=== PATIENT | female | born 1960 | race Caucasian/White ===

== ENCOUNTER 2018-10-16 12:51 | Emergency (ER) | payer BC ==
[2018-10-16 13:22] VITALS: RESP 18
[2018-10-16] MEDS ORDERED: SODIUM CHLORIDE 0.9% 1,000 ML IV STA (14:38)
[2018-10-16] MEDS ORDERED: ONDANSETRON 4 MG/2 ML VIAL IVP STA (14:38)
[2018-10-16] MEDS ORDERED: MORPHINE SULFATE 4 MG/ML SYRINGE IVP STA (14:44)
[2018-10-16] MEDS ORDERED: VENLAFAXINE HCL 75 MG TAB PO STA (14:44)
[2018-10-16] MEDS ORDERED: diphenhydrAMINE 50 MG/ML 1 ML VIAL IVP STA (14:54)
[2018-10-16] MEDS ORDERED: methylPREDNISolone SOD SUCCI 125 MG/2 ML VIAL IV STA (14:54)
[2018-10-16] MEDS ORDERED: FAMOTIDINE 20 MG/2 ML VIAL IV STA (14:54)
--- NOTE | 2018-10-16 14:55 | ED ---
Abdominal Pain HPI - General Chief Complaint: Abdominal Pain Stated Complaint: Vomiting Time Seen by Provider: 10/16/18 14:12 Source: patient Mode of arrival: ambulatory Limitations: no limitations - History of Present Illness Initial Comments: 58yo female with PMH of chronic IBS, depression, anxiety disorder, previous cholecystectomy and appendectomy presenting for chief complaints of "im out of my effexor and i think its causing my pain". Patient states that she ran out of her Effexor about 2-3 days ago, she states that she has had runny stools and an episode of emesis. She denies uncontrolled emesis or hematemesis. Patient states she has diffuse abdominal tenderness is unable to localize, she states is mostly cramping of the lower abdomen. Patient denies any melena or hematochezia. Patient denies any recent travel or ingestion of food concerning for possible infectious diarrhea. Pt denies fever, chills, chest pain, dyspnea, dyspnea on exertion, back pain. Patient continues to state that she feels that without her Effexor it has increased her anxiety and causing IBS. No sick contact in household. Pt states she is attempting to establish primary care with Dr. Reilly however she is a new patient since recently moving from [place] and cant get an appointment for 6 months. Upon arrival pt appears well , no signs of distress. - Related Data Home Medications Medication Instructions Recorded Confirmed Gabapentin [Neurontin] 300 mg PO TID 10/16/18 10/16/18 Hyoscyamine Sulfate [Levbid] 0.375 mg PO BID 10/16/18 10/16/18 Meloxicam [Mobic] 15 mg PO DAILY 10/16/18 10/16/18 Pantoprazole Sodium [Protonix] 40 mg PO BID 10/16/18 10/16/18 QUEtiapine [SEROquel] 100 mg PO HS 10/16/18 10/16/18 Venlafaxine HCl [Effexor XR] 225 mg PO DAILY 10/16/18 10/16/18 Previous Rx's Medication Instructions Recorded Venlafaxine HCl [Effexor] 75 mg PO TID 21 Days #63 tab 10/16/18 Allergies Allergy/AdvReac Type Severity Reaction Status Date / Time cephalexin [From Keflex] Allergy Anaphylaxis Verified 10/16/18 14:48 Iodinated Contrast- Oral and Allergy Unknown Verified 10/16/18 14:48 IV Dye Penicillins Allergy Anaphylaxis Verified 10/16/18 14:48 Sulfa (Sulfonamide Allergy Unknown Verified 10/16/18 14:48 Antibiotics) Review of Systems ROS Statement: Those systems with pertinent positive or pertinent negative responses have been documented in the HPI. ROS Other: All systems not noted in ROS Statement are negative. Past Medical History Past Medical History: No Reported History History of Any Multi-Drug Resistant Organisms: None Reported Past Surgical History: Appendectomy, Back Surgery, Section, Cholecystectomy, Orthopedic Surgery, Tonsillectomy Additional Past Surgical History / Comment(s): cervical fusion, colonoscopy Past Psychological History: Anxiety, Depression Smoking Status: Current every day smoker Past Alcohol Use History: None Reported Past Drug Use History: None Reported General Exam - General Exam Comments Initial Comments: General: The patient is awake and alert, in no distress, and does not appear acutely ill. Eye: Pupils are equal, round and reactive to light, extra-ocular movements are intact. No nystagmus. There is normal conjunctiva bilaterally. No signs of icterus. Ears, nose, mouth and throat: There are moist mucous membranes and no oral lesions. Neck: The neck is supple, there is no tenderness or JVD. Cardiovascular: There is a regular rate and rhythm. No murmur, rub or gallop is appreciated. Respiratory: Lungs are clear to auscultation, respirations are non-labored, breath sounds are equal. No wheezes, stridor, rales, or rhonchi. Gastrointestinal: No noted diaphoresis, jaundice, pallor, protecting postures or squirming. Symmetrical pigmentation of abdomen without signs of inflammation. Striae noted Umbilicus mildline, inverted without swelling. No dilated veins. Abdomen contour obese, no noted abdominal distention. No visible masses. No peristalsis , aortic pulsations, or ventral hernia. Bowel sounds audible in all 4 quadrants , unremarkable. Mild diffuse tenderness to very deep palpation of the lower abdomen. Liver edge, not palpable. Spleen edge, right and left kidney not palpable. Superior bladder margin non-tender. Special Testing: Negative [place], Rovsing, McBurney, Ian, cutaneous hyperesthesia. Negative Heel Jar test. No CVA tenderness. Digital rectal exam deferred. Negative lamb turners or cullens sign Musculoskeletal: Normal ROM, no tenderness. Strength 5/5. Sensation intact. Pulses equal bilaterally 2+. Neurological: A&O x 3. CN II-XII intact, There are no obvious motor or sensory deficits. Coordination appears grossly intact. Speech is normal. Skin: Skin is warm and dry and no rashes or lesions are noted. Psychiatric: Cooperative, appropriate mood & affect, normal judgment. Limitations: no limitations Course Vital Signs 10/16/18 10/16/18 10/16/18 13:18 16:00 18:20 Temperature 98.3 F 98.7 F Pulse Rate 75 72 85 Respiratory 18 18 18 Rate Blood Pressure 171/86 154/77 157/85 O2 Sat by Pulse 97 98 95 Oximetry Medical Decision Making - Medical Decision Making 58-year-old female presenting today for chief complaint of diffuse abdominal pain, an episode of vomiting and diarrhea. Patient had no episodes of vomiting in the ER nor diarrhea. Abdominal exam benign, very mild tenderness to very deep palpation. No rigidity or guarding. His normal. CT negative, recommend patient was to correlate for possible small bowel enteritis which appears consistent with patient symptoms. Pt was given one dose of 75mg effexor (her previous dosing that she takes TID) and states it helped tremendously. She states she feels so much better and cant believe that her family didnt believe that the effexor was causing her bowel symptoms. At this time given acceptable laboratory findings, benign abdominal exam, (-) CT for acute intraabdominal process that patient is stable for discharge with prescription for effexor until patient can find a new primary care provider. I did recommend being seen at the [facility] for f/u while awaiting establishing care with new primary care provider. Pt is agreeable with this plan and discharge. Pt discharged appearing well. Improvement of BP. Case was discussed with attending provider Dr. Sorensen prior to patient's discharge who agrees with impression and plan - Lab Data Result diagrams: 10/16/18 15:16 10/16/18 15:16 Lab Results 10/16/18 10/16/18 10/16/18 Range/Units 15:16 15:16 15:16 WBC 11.1 H (3.8-10.6) k/uL RBC 4.54 (3.80-5.40) m/uL Hgb 14.6 (11.4-16.0) gm/dL Hct 42.3 (34.0-46.0) % MCV 93.2 (80.0-100.0) fL MCH 32.2 (25.0-35.0) pg MCHC 34.5 (31.0-37.0) g/dL RDW 13.9 (11.5-15.5) % Plt Count 306 (150-450) k/uL Neutrophils % 76 % Lymphocytes % 18 % Monocytes % 4 % Eosinophils % 0 % Basophils % 0 % Neutrophils # 8.5 H (1.3-7.7) k/uL Lymphocytes # 2.0 (1.0-4.8) k/uL Monocytes # 0.5 (0-1.0) k/uL Eosinophils # 0.0 (0-0.7) k/uL Basophils # 0.0 (0-0.2) k/uL PT (9.0-12.0) sec INR (<1.2) APTT (22.0-30.0) sec Sodium 142 (137-145) mmol/L Potassium 3.7 (3.5-5.1) mmol/L Chloride 106 (98-107) mmol/L Carbon Dioxide 25 (22-30) mmol/L Anion Gap 11 mmol/L BUN 13 (7-17) mg/dL Creatinine 0.49 L (0.52-1.04) mg/dL Est GFR (CKD-EPI)AfAm >90 (>60 ml/min/1.73 sqM) Est GFR (CKD-EPI)NonAf >90 (>60 ml/min/1.73 sqM) Glucose 118 H (74-99) mg/dL Plasma Lactic Acid Mario (0.7-2.0) mmol/L Calcium 10.0 (8.4-10.2) mg/dL Total Bilirubin 0.9 (0.2-1.3) mg/dL AST 19 (14-36) U/L ALT 35 (9-52) U/L Alkaline Phosphatase 94 (38-126) U/L Troponin I (0.000-0.034) ng/mL Total Protein 7.4 (6.3-8.2) g/dL Albumin 4.6 (3.5-5.0) g/dL Amylase 51 (30-110) U/L Lipase 71 (23-300) U/L Urine Color Yellow Urine Appearance Clear (Clear) Urine pH 5.5 (5.0-8.0) Ur Specific [place] 1.021 (1.001-1.035) Urine Protein Trace H (Negative) Urine Glucose (UA) Negative (Negative) Urine Ketones Negative (Negative) Urine Blood Moderate H (Negative) Urine Nitrite Negative (Negative) Urine Bilirubin Negative (Negative) Urine Urobilinogen <2.0 (<2.0) mg/dL Ur Leukocyte Esterase Trace H (Negative) Urine RBC 15 H (0-5) /hpf Urine WBC 3 (0-5) /hpf Ur Squamous Epith Cells 2 (0-4) /hpf Urine Mucus Moderate H (None) /hpf 10/16/18 10/16/18 10/16/18 Range/Units 15:16 15:16 15:16 WBC (3.8-10.6) k/uL RBC (3.80-5.40) m/uL Hgb (11.4-16.0) gm/dL Hct (34.0-46.0) % MCV (80.0-100.0) fL MCH (25.0-35.0) pg MCHC (31.0-37.0) g/dL RDW (11.5-15.5) % Plt Count (150-450) k/uL Neutrophils % % Lymphocytes % % Monocytes % % Eosinophils % % Basophils % % Neutrophils # (1.3-7.7) k/uL Lymphocytes # (1.0-4.8) k/uL Monocytes # (0-1.0) k/uL Eosinophils # (0-0.7) k/uL Basophils # (0-0.2) k/uL PT 10.7 (9.0-12.0) sec INR 1.0 (<1.2) APTT 25.1 (22.0-30.0) sec Sodium (137-145) mmol/L Potassium (3.5-5.1) mmol/L Chloride (98-107) mmol/L Carbon Dioxide (22-30) mmol/L Anion Gap mmol/L BUN (7-17) mg/dL Creatinine (0.52-1.04) mg/dL Est GFR (CKD-EPI)AfAm (>60 ml/min/1.73 sqM) Est GFR (CKD-EPI)NonAf (>60 ml/min/1.73 sqM) Glucose (74-99) mg/dL Plasma Lactic Acid Mario 1.4 (0.7-2.0) mmol/L Calcium (8.4-10.2) mg/dL Total Bilirubin (0.2-1.3) mg/dL AST (14-36) U/L ALT (9-52) U/L Alkaline Phosphatase (38-126) U/L Troponin I <0.012 (0.000-0.034) ng/mL Total Protein (6.3-8.2) g/dL Albumin (3.5-5.0) g/dL Amylase (30-110) U/L Lipase (23-300) U/L Urine Color Urine Appearance (Clear) Urine pH (5.0-8.0) Ur Specific [place] (1.001-1.035) Urine Protein (Negative) Urine Glucose (UA) (Negative) Urine Ketones (Negative) Urine Blood (Negative) Urine Nitrite (Negative) Urine Bilirubin (Negative) Urine Urobilinogen (<2.0) mg/dL Ur Leukocyte Esterase (Negative) Urine RBC (0-5) /hpf Urine WBC (0-5) /hpf Ur Squamous Epith Cells (0-4) /hpf Urine Mucus (None) /hpf Disposition Clinical Impression: Acute diarrhea, Acute vomiting, Medication refill Disposition: HOME SELF-CARE Condition: Good Instructions (If sedation given, give patient instructions): Gastroenteritis ( ED), Acute Nausea and Vomiting (ED), Abdominal Pain (ED) Additional Instructions: Please use medication as discussed. Please follow-up with family doctor in the next 2 days.. Please return to emergency room if the symptoms increase or worsen or for any other concerns. Prescriptions: Venlafaxine HCl [Effexor] 75 mg PO TID 21 Days #63 tab Is patient prescribed a controlled substance at d/c from ED?: No Referrals: None,Stated [Primary Care Provider] - 1-2 days [facility] [NON-STAFF] - 1-2 days Adriana Vann MD [STAFF PHYSICIAN] - 1-2 days Fabio Back MD [STAFF PHYSICIAN] - 1-2 days Time of Disposition: 18:12
[2018-10-16 15:36] LABS: Basophils % (A) 0 %; Eosinophils % (A) 0 %; HCT 42.3 % (34.0-46.0); HGB 14.6 gm/dL (11.4-16.0); Lymphocytes % (A) 18 %; MCH 32.2 pg (25.0-35.0); MCHC 34.5 g/dL (31.0-37.0); MCV 93.2 fL (80.0-100.0); Mean Platelet Volume 6.4; Monocytes # (A) 0.5 k/uL (0-1.0); Monocytes % (A) 4 %; Neutrophils # (A) 8.5 k/uL (1.3-7.7); Neutrophils % (A) 76 %; Platelet Count 306 k/uL (150-450); RBC 4.54 m/uL (3.80-5.40); RDW 13.9 % (11.5-15.5); WBC 11.1 k/uL (3.8-10.6)
[2018-10-16 15:44] LABS: Prothrombin Time 10.7 sec (9.0-12.0)
[2018-10-16 15:45] LABS: Partial Thromboplastin Time 25.1 sec (22.0-30.0)
[2018-10-16 15:46] LABS: Appearance,Urine Clear (Clear); Bilirubin,Urine Negative (Negative); Blood,Urine Moderate (Negative); Color,Urine Yellow; Glucose,Urine (UA) Negative (Negative); Ketones,Urine Negative (Negative); Leukocyte Esterase,Urine Trace (Negative); Mucus,Urine Moderate /hpf; Nitrite,Urine Negative (Negative); PH, Urine 5.5 (5.0-8.0); Protein,Urine Trace (Negative); RBC,Urine 15 /hpf (0-5); Specific Gravity,Urine 1.021 (1.001-1.035); Squamous Epithelial Cell,Urine 2 /hpf (0-4); Urobilinogen,Urine <2.0 mg/dL (<2.0); WBC,Urine 3 /hpf (0-5)
[2018-10-16 15:50] LABS: ALT 35 U/L (9-52); AST 19 U/L (14-36); Albumin 4.6 g/dL (3.5-5.0); Alkaline Phosphatase 94 U/L (38-126); Amylase 51 U/L (30-110); Anion Gap 11 mmol/L; Blood Urea Nitrogen 13 mg/dL (7-17); Carbon Dioxide 25 mmol/L (22-30); Chloride 106 mmol/L (98-107); Glucose 118 mg/dL (74-99); Lipase 71 U/L (23-300); Potassium 3.7 mmol/L (3.5-5.1); Sodium 142 mmol/L (137-145); Total Bilirubin 0.9 mg/dL (0.2-1.3); Total Protein 7.4 g/dL (6.3-8.2)
--- NOTE | 2018-10-16 16:05 | XR ---
EXAMINATION TYPE: XR chest 2V DATE OF EXAM: 10/16/2018 COMPARISON: NONE HISTORY: Shortness of breath TECHNIQUE: Frontal and lateral views of the chest are obtained. FINDINGS: Scattered senescent parenchymal changes noted. Hyperinflation compatible with COPD. No evidence for infiltrate. No evidence for atelectasis. Heart size is stable. Mediastinal structures are stable and grossly unremarkable. No evidence for hilar prominence. Degenerative changes dorsal spine. IMPRESSION: 1. No evidence for acute pulmonary disease.
--- NOTE | 2018-10-16 16:31 | CT ---
EXAMINATION TYPE: CT abdomen pelvis w con DATE OF EXAM: 10/16/2018 COMPARISON: None HISTORY: Generalized abdominal pain with nausea, vomiting and diarrhea. CT DLP: 794.8 mGycm CONTRAST: CT scan of the abdomen and pelvis is performed without Oral Contrast and with IV Contrast, patient in jected with 100 mL of Isovue 300. FINDINGS: LUNG BASES-: No visible nodule. No infiltrate. LIVER/GB: Cholecystectomy changes noted. No space occupying hepatic lesion. Biliary tree is of nor mal caliber. PANCREAS: No inflammation. No distinct mass. SPLEEN: No splenic enlargement. No lesion seen. ADRENALS: No nodule. No thickening. KIDNEYS/BLADDER: No hydronephrosis. No nephrolithiasis. No distinct renal mass. Urinary bladder g rossly unremarkable. BOWEL: Normal appendix. Normal bowel caliber. Small bowel wall thickening with scattered air-fluid l evels suspicious for enteritis. No obstructive change. No free air or abscess. GENITAL ORGANS: No gross abnormality. LYMPH NODES: No greater than 1cm abdominal or pelvic lymph nodes are appreciated. AORTA: No significant abnormality. OSSEOUS STRUCTURES: Degenerative changes lumbar spine. OTHER: No significant additional abnormality is seen. IMPRESSION: 1. Correlate for small bowel enteritis.
[2018-10-16 18:21] VITALS: BP 157/85; PULSE 85; TEMP 98.7
== END 2018-10-16 18:26 | disposition home or self-care (01) ==
LOC: EC 12:51
DX: R19.7 Diarrhea, unspecified (principal); R11.10 Vomiting, unspecified; Z76.0 Encounter for issue of repeat prescription; R10.30 Lower abdominal pain, unspecified; F41.9 Anxiety disorder, unspecified; F32.9 Major depressive disorder, single episode, unspecified; F17.200 Nicotine dependence, unspecified, uncomplicated; Z87.19 Personal history of other diseases of the digestive system; Z90.49 Acquired absence of other specified parts of digestive tract; Z79.1 Long term (current) use of non-steroidal anti-inflammatories (NSAID); Z79.899 Other long term (current) drug therapy; Z88.1 Allergy status to other antibiotic agents; Z91.041 Radiographic dye allergy status; Z88.0 Allergy status to penicillin; Z88.2 Allergy status to sulfonamides
CPT/HCPCS: 36415; 80053; 82150; 83605; 83690; 84484; 85025; 85610; 85730; 81001; 87040; 71046; 74177; 99284; 96374; 96375 ×4; 96361; J2270; J1200; J2930; J2405; Q9967

== ENCOUNTER 2019-04-06 14:13 | Emergency (ER) | payer BC ==
[2019-04-06] MEDS ORDERED: HYDROcodone/APAP 5-325MG 1 EACH TAB PO STA (14:47)
[2019-04-06] MEDS ORDERED: KETOROLAC 30 MG/ML 1 ML VIAL IVP STA (14:48)
[2019-04-06] MEDS ORDERED: CLINDAMYCIN 600 MG in DEXTROSE 5% IN WATER 50 ML IVPB STA ×2 (14:49)
--- NOTE | 2019-04-06 14:51 | ED ---
Skin/Abscess/FB HPI - General Chief complaint: Skin/Abscess/Foreign Body Stated complaint: Left breast abscess Time Seen by Provider: 04/06/19 14:24 Source: patient, RN notes reviewed, old records reviewed Mode of arrival: ambulatory Limitations: no limitations - History of Present Illness Initial comments: Patient's a 58-year-old female presents emergency department today for evaluation for an abscess underneath her left breast. Patient reports that she had 2 small areas of swelling, which started to drain on Tuesday of this past week. Patient states that this a creamy purpleish bloody substance that was removed. Patient states that over the past 24-48 hours she's had increased redness and swelling extending over the entire left breast. She complains of some pain in the axilla. Patient states that she's had no chest pain, shortness of breath. She reports that she's had history of infections such as this before presently 20 years ago. at that Time she had received IV antibiotics and a PICC line. Patient states that she has had some chills denies fever at this time. - Related Data Home Medications Medication Instructions Recorded Confirmed Gabapentin [Neurontin] 300 mg PO TID 10/16/18 10/16/18 Hyoscyamine Sulfate [Levbid] 0.375 mg PO BID 10/16/18 10/16/18 Meloxicam [Mobic] 15 mg PO DAILY 10/16/18 10/16/18 Pantoprazole Sodium [Protonix] 40 mg PO BID 10/16/18 10/16/18 QUEtiapine [SEROquel] 100 mg PO HS 10/16/18 10/16/18 Venlafaxine HCl [Effexor XR] 225 mg PO DAILY 10/16/18 10/16/18 Previous Rx's Medication Instructions Recorded Venlafaxine HCl [Effexor] 75 mg PO TID 21 Days #63 tab 10/16/18 Clindamycin [Cleocin] 450 mg PO Q6H 10 Days 04/06/19 HYDROcodone/APAP 5-325MG [[place] 1 tab PO Q6HR PRN 3 Days #12 tab 04/06/19 5-325] Allergies Allergy/AdvReac Type Severity Reaction Status Date / Time cephalexin [From Keflex] Allergy Anaphylaxis Verified 10/16/18 14:48 Iodinated Contrast- Oral and Allergy Unknown Verified 10/16/18 14:48 IV Dye Penicillins Allergy Anaphylaxis Verified 10/16/18 14:48 Sulfa (Sulfonamide Allergy Unknown Verified 10/16/18 14:48 Antibiotics) Review of Systems ROS Statement: Those systems with pertinent positive or pertinent negative responses have been documented in the HPI. ROS Other: All systems not noted in ROS Statement are negative. Past Medical History Past Medical History: No Reported History History of Any Multi-Drug Resistant Organisms: None Reported Past Surgical History: Appendectomy, Section, Cholecystectomy, Hysterectomy, Orthopedic Surgery, Tonsillectomy Additional Past Surgical History / Comment(s): cervical fusion, colonoscopy Past Psychological History: Anxiety, Depression Smoking Status: Current every day smoker Past Alcohol Use History: None Reported Past Drug Use History: None Reported General Exam - General Exam Comments Initial Comments: Patient is a 58-year-old female. Alert and oriented 3. No significant distress. Limitations: no limitations General appearance: alert, in no apparent distress Eye exam: Present: normal appearance, PERRL, EOMI. Absent: scleral icterus, conjunctival injection, periorbital swelling ENT exam: Present: normal exam, mucous membranes moist Neck exam: Present: normal inspection. Absent: tenderness, meningismus, lymphadenopathy Respiratory exam: Present: normal lung sounds bilaterally. Absent: respiratory distress, wheezes, rales, rhonchi, stridor Cardiovascular Exam: Present: regular rate, normal rhythm, normal heart sounds. Absent: systolic murmur, diastolic murmur, rubs, gallop, clicks GI/Abdominal exam: Present: soft, normal bowel sounds, other (cellulitis surrounding left breast and small area of abscess over lower brest at 6 oclock position. ). Absent: distended, tenderness, guarding, rebound, rigid Extremities exam: Present: normal inspection, full ROM, normal capillary refill. Absent: tenderness, pedal edema, joint swelling, calf tenderness Back exam: Present: normal inspection Neurological exam: Present: alert, oriented X3, CN II-XII intact Psychiatric exam: Present: normal affect, normal mood Skin exam: Present: warm, dry, intact, normal color. Absent: rash Course Vital Signs 04/06/19 04/06/19 04/06/19 14:18 14:46 15:00 Temperature 97.9 F Pulse Rate 82 82 80 Respiratory 18 12 12 Rate Blood Pressure 128/84 147/81 147/81 O2 Sat by Pulse 98 Oximetry 04/06/19 04/06/19 04/06/19 15:07 16:00 17:08 Temperature 97.4 F L 98.0 F Pulse Rate 84 82 Respiratory 12 12 Rate Blood Pressure 145/80 126/74 O2 Sat by Pulse 98 Oximetry Medical Decision Making - Medical Decision Making This Patient is a 50-year-old female presents emergency department today for evaluation for left breast cellulitis. She's had area of abscess earlier in the week and has now spread to entire left breast. She has no fever at this time vital signs are stable. White blood cell count is normal. Patient was given a dose of clindamycin she has ALLERGIES to multiple antibiotics. Patient was advised to be discharged with oral prescription as of this time. Discussed if the area of redness and swelling worsens to return for reevaluation. This was marked with pen. Patient understands treatment plan will comply. Return parameters were discussed. - Lab Data Result diagrams: 04/06/19 15:17 04/06/19 15:17 Lab Results 04/06/19 04/06/19 Range/Units 15:17 15:17 WBC 8.9 (3.8-10.6) k/uL RBC 4.29 (3.80-5.40) m/uL Hgb 13.7 (11.4-16.0) gm/dL Hct 41.0 (34.0-46.0) % MCV 95.6 (80.0-100.0) fL MCH 31.9 (25.0-35.0) pg MCHC 33.4 (31.0-37.0) g/dL RDW 15.4 (11.5-15.5) % Plt Count 268 (150-450) k/uL Neutrophils % 72 % Lymphocytes % 22 % Monocytes % 4 % Eosinophils % 1 % Basophils % 0 % Neutrophils # 6.4 (1.3-7.7) k/uL Lymphocytes # 1.9 (1.0-4.8) k/uL Monocytes # 0.3 (0-1.0) k/uL Eosinophils # 0.1 (0-0.7) k/uL Basophils # 0.0 (0-0.2) k/uL Sodium 141 (137-145) mmol/L Potassium 3.8 (3.5-5.1) mmol/L Chloride 107 (98-107) mmol/L Carbon Dioxide 24 (22-30) mmol/L Anion Gap 10 mmol/L BUN 12 (7-17) mg/dL Creatinine 0.48 L (0.52-1.04) mg/dL Est GFR (CKD-EPI)AfAm >90 (>60 ml/min/1.73 sqM) Est GFR (CKD-EPI)NonAf >90 (>60 ml/min/1.73 sqM) Glucose 117 H (74-99) mg/dL Calcium 9.7 (8.4-10.2) mg/dL Total Bilirubin 0.5 (0.2-1.3) mg/dL AST 16 (14-36) U/L ALT 21 (9-52) U/L Alkaline Phosphatase 76 (38-126) U/L Total Protein 6.9 (6.3-8.2) g/dL Albumin 4.2 (3.5-5.0) g/dL Disposition Clinical Impression: Cellulitis of left breast Disposition: HOME SELF-CARE Condition: Good Instructions (If sedation given, give patient instructions): Cellulitis (ED) Additional Instructions: Patient is to monitor the area of redness, fever worsens within the next 48 hours. Patient should have plenty of fluids, take Motrin Tylenol for pain. Should eat yogurt when taking the antibiotic. Prescriptions: Clindamycin [Cleocin] 450 mg PO Q6H 10 Days HYDROcodone/APAP 5-325MG [[place] 5-325] 1 tab PO Q6HR PRN 3 Days #12 tab PRN Reason: Pain Is patient prescribed a controlled substance at d/c from ED?: Yes If prescribed controlled substance>3 days was MAPS reviewed?: Prescribed <3 Days If opioid is for acute pain is fill amount 7 days or less?: Yes If Rx opioid, was Start Talking consent form obtained?: Yes Referrals: None,Stated [Primary Care Provider] - 1-2 days Time of Disposition: 16:48
[2019-04-06 15:33] LABS: Basophils % (A) 0 %; Eosinophils # (A) 0.1 k/uL (0-0.7); Eosinophils % (A) 1 %; HGB 13.7 gm/dL (11.4-16.0); Lymphocytes # (A) 1.9 k/uL (1.0-4.8); Lymphocytes % (A) 22 %; MCH 31.9 pg (25.0-35.0); MCHC 33.4 g/dL (31.0-37.0); MCV 95.6 fL (80.0-100.0); Mean Platelet Volume 6.8; Monocytes # (A) 0.3 k/uL (0-1.0); Monocytes % (A) 4 %; Neutrophils # (A) 6.4 k/uL (1.3-7.7); Neutrophils % (A) 72 %; Platelet Count 268 k/uL (150-450); RBC 4.29 m/uL (3.80-5.40); RDW 15.4 % (11.5-15.5); WBC 8.9 k/uL (3.8-10.6)
[2019-04-06 15:42] LABS: ALT 21 U/L (9-52); AST 16 U/L (14-36); African American GFR (CKD) >90 (>60 ml/min/1.73 sqM); Albumin 4.2 g/dL (3.5-5.0); Alkaline Phosphatase 76 U/L (38-126); Anion Gap 10 mmol/L; Blood Urea Nitrogen 12 mg/dL (7-17); Calcium 9.7 mg/dL (8.4-10.2); Carbon Dioxide 24 mmol/L (22-30); Chloride 107 mmol/L (98-107); Glucose 117 mg/dL (74-99); Potassium 3.8 mmol/L (3.5-5.1); Sodium 141 mmol/L (137-145); Total Bilirubin 0.5 mg/dL (0.2-1.3); Total Protein 6.9 g/dL (6.3-8.2)
[2019-04-06 16:44] VITALS: RESP 12
[2019-04-06 17:10] VITALS: BP 126/74; PULSE 82; TEMP 98
== END 2019-04-06 17:00 | disposition home or self-care (01) ==
LOC: EC 14:13
DX: N61.0 Mastitis without abscess (principal); F41.9 Anxiety disorder, unspecified; F32.9 Major depressive disorder, single episode, unspecified; F17.200 Nicotine dependence, unspecified, uncomplicated; Z79.1 Long term (current) use of non-steroidal anti-inflammatories (NSAID); Z79.899 Other long term (current) drug therapy; Z88.1 Allergy status to other antibiotic agents; Z91.041 Radiographic dye allergy status; Z88.0 Allergy status to penicillin; Z88.2 Allergy status to sulfonamides
CPT/HCPCS: 36415; 80053; 85025; 87040; 87070; 87205; 99284; 96365; 96375; J1885

== ENCOUNTER → 2019-06-06 | Outpatient (CLI) | payer BC ==
--- NOTE | 2019-06-06 09:59 | US ---
EXAMINATION TYPE: US thyroid st tissue head/neck DATE OF EXAM: 06/06/2019 COMPARISON: NONE CLINICAL HISTORY: E04.2 Multinodular goiter. Goiter, history of FNA GLAND SIZE: Right Lobe: 4.6 x 1.3 x 1.5 cm Overall Parenchyma: heterogenous Left Lobe: 5.5 x 1.8 x 2.0 cm Overall Parenchyma: heterogeneous Isthmus Thickness: 0.3 cm NODULES RIGHT: # of nodules measured on right: 2 1. 1.0 X 0.6 x 0.8 cm hypoechoic mixed nodule at the mid pole with well-defined margins. This nodul e is wider than tall and shows intranodular vascularity. Prior size: no previous 2. 1.5 X 0.8 x 1.6 cm hypoechoic solid nodule at the medial inferior pole with poorly defined margin s. This nodule is wider than tall and shows intranodular vascularity. Prior size: no previous LEFT: # of nodules measured on left: 1 vs. cluster of nodules 1. 3.8 X 1.6 x 2.1 cm hypoechoic solid single nodule vs. cluster of nodules seen at the mid pole wi th well-defined margins. This nodule is wider than tall and shows intranodular vascularity. Prior size: no previous ISTHMUS: # of nodules measured in the isthmus: 0 Bilateral neck scanned, no evidence of lymphadenopathy. IMPRESSION: Heterogeneous gland with enlarged left lobe and multiple bilateral nodules.
--- NOTE | 2019-06-18 09:22 | MM ---
Reason for exam: screening (asymptomatic). Last mammogram was performed 8 years and 11 months ago. History: Patient is postmenopausal. Physical Findings: A clinical breast exam by your physician is recommended on an annual basis and results should be correlated with mammographic findings. MG 3D Screening Mammo W/Cad Bilateral CC and MLO view(s) were taken. Prior study comparison: June 30, 2010, mammogram, performed at [facility]. June 07, 2008, mammogram, performed at [facility]. The breast tissue is heterogeneously dense. This may lower the sensitivity of mammography. No suspicious abnormality. No significant changes when compared with prior studies. ASSESSMENT: Negative, BI-RAD 1 RECOMMENDATION: Routine screening mammogram of both breasts in 1 year.
== END | disposition home or self-care (01) ==
LOC: RADMAMWWP 07:52
PROVIDERS: ATTEND Internal Medicine
DX: Z12.31 Encounter for screening mammogram for malignant neoplasm of breast (principal); E04.2 Nontoxic multinodular goiter
CPT/HCPCS: 76536; 77063; 77067

== ENCOUNTER → 2019-07-11 | Outpatient (CLI) | payer BC ==
[2019-07-11 15:03] VITALS: BP 123/78; PULSE 77; RESP 16; TEMP 98; BMI 25.0
--- NOTE | 2019-07-11 16:21 | P.GSHP ---
History of Present Illness H&P Date: 07/11/19 Chief Complaint: boils/cellulitis bresat, breast pain The patient is a 59 year old white female with a complaint of a "boil" under her right breast. This was about 20 years ago. The patient was told that she had mastitis initially. She was admitted to the hospital and had antibiotics that was about 22 years ago. The patient also had a pic line for antibiotics in the past for a course of 6 months of antibiotics. This was also 20 years ago. She This area has intermittently flared up since that time. Most recently however the patient is complaining of left inferior breast swelling. She was treated for cellulites in the ER about 3 months ago. She had a bilateral mammogram on 06-06-19 which was negative BIRAD 1. Patient has persistent swelling in the inferior aspect of her left breast. She states it is painful at times. The patient states that time she does have intermittent fever/chills. She does not take her temperature at those times. No nipple discharge or skin changes of concern. The patient recently had 3 teeth pulled and was on clindamycin at that time. She is not on any antibiotics right now. Cultures done on showed rare PMNs no organisms seen and blood culture no growth The patient states she has intermittent throbbing breast pain somewhat related to the abscess formations. She drinks a cup of coffee per day. She smokes 1 pack per week. Her smokes. She historically only intermittently. Family History: nephew: thyroid cancer Hormonal History: Menarche: 11 , breast fed: no, first at 25 menopause: hysterectomy at 39 for endometriosis, still has ovaries BCP: 3 years hormones: none Medical history: Arthritis Fibromyalgia Neuropathy GERD Autoimmune disorder Surgical history: 2 cervical fusion tonsil appy gallbladder Arthroscopic knee surgery colonoscopy Social History: smoke: 1/PP week alcohol: none drugs: none - Constitutional Constitutional: Reports sweats - EENT Eyes: bilateral dry eye Ears: deny: decreased hearing, tinnitus Ears, nose, mouth and throat: Denies headache, Denies sore throat - Breasts Breasts: bilateral: as per HPI - Cardiovascular Cardiovascular: Denies chest pain, Denies shortness of breath - Respiratory Respiratory: Denies cough, Denies 7 - Gastrointestinal Comment: IBS Gastrointestinal: Reports constipation, Reports diarrhea, Denies abdominal pain, Denies nausea, Denies vomiting - Genitourinary (Female) Genitourinary: Denies dysuria, Denies hematuria - Menstruation Menstruation: Reports post hysterectomy - Musculoskeletal Musculoskeletal: Reports myalgias - Integumentary Comment: bruising easily Integumentary: Denies pruritus, Denies rash - Neurological Comment: neuropathy - Psychiatric Psychiatric: Reports anxiety, Reports depression - Endocrine Comment: goiter - Hematologic/Lymphatic Hematologic/Lymphatic: Reports easy bruising - Allergic/Immunologic Allergic/Immunologic: Reports seasonal allergies Past Medical History Past Medical History: No Reported History History of Any Multi-Drug Resistant Organisms: None Reported Past Surgical History: Appendectomy, Section, Cholecystectomy, Hysterectomy, Orthopedic Surgery, Tonsillectomy Additional Past Surgical History / Comment(s): cervical fusion, colonoscopy Past Psychological History: Anxiety, Depression Smoking Status: Current every day smoker Past Alcohol Use History: None Reported Past Drug Use History: None Reported Medications and Allergies Home Medications Medication Instructions Recorded Confirmed Type Gabapentin [Neurontin] 600 mg PO TID 10/16/18 07/11/19 History Hyoscyamine Sulfate [Levbid] 0.375 mg PO BID 10/16/18 07/11/19 History Pantoprazole Sodium [Protonix] 40 mg PO BID 10/16/18 07/11/19 History QUEtiapine [SEROquel] 100 mg PO HS 10/16/18 07/11/19 History Venlafaxine HCl [Effexor] 75 mg PO TID 21 Days #63 tab 10/16/18 07/11/19 Rx Fluticasone Nasal [place] [Flonase 1 spr NASAL DAILY MDD SP 07/11/19 07/11/19 History Nasal [place]] Simvastatin [Zocor] 20 mg PO HS 07/11/19 07/11/19 History Allergies Allergy/AdvReac Type Severity Reaction Status Date / Time cephalexin [From Keflex] Allergy Anaphylaxis Verified 07/11/19 13:53 Iodinated Contrast Media Allergy Unknown Verified 07/11/19 13:53 [Iodinated Contrast- Oral and IV Dye] Penicillins Allergy Anaphylaxis Verified 07/11/19 13:53 Sulfa (Sulfonamide Allergy Unknown Verified 07/11/19 13:53 Antibiotics) aspirin AdvReac Dyspnea Unverified 07/11/19 15:04 Surgical - Exam Vital Signs Temp Pulse Resp BP 98.0 F 77 16 123/78 07/11/19 14:32 07/11/19 14:32 07/11/19 14:32 07/11/19 14:32 BMI 25.1 - General well developed, well nourished, no distress - Eyes normal ocular movement - ENT no hearing loss, no congestion - Neck no masses, trachea midline - Respiratory normal respiratory effort, clear to auscultation - Cardiovascular Rhythm: regular Heart Sounds: normal: S1, S2 - Abdomen Abdomen: soft, non tender, no guarding, no rigid, no rebound - Integumentary Red rash like area over the left forearm - Neurologic no disoriented, no combative - Musculoskeletal normal gait, normal posture - Psychiatric oriented to time, oriented to person, oriented to place, speech is normal, memory intact Breast examination: Right breast: Pock gallagher on the skin from stages of healing of different abscesses Multi positional exam no dominant masses or nodules of concern, fibrocystic changes Right axilla: No adenopathy of concern Left breast: Pock gallagher on the skin from different abscesses healing greastest in the inferior aspect of the breast no discrete abscess which would warrant biopsy and drainage at this time, fibrocystic changes Left axilla: No adenopathy of concern Results mammogram results reviewed Assessment and Plan Assessment: Impression: 1. Fibrocystic breast changes 2. Multiple recurrent infections in the inferior aspect of the breast no active infection at this time 3. Fibromyalgia 4. Autoimmune disease 5. Rheumatoid arthritis 6. Irritable bowel disease 7. Depression 8. breast pain: related to scar tissue from prior abscesses, and fibrocystic changes 9. Intermittant stria on her extremities 10 no active infection at this time Plan: 1. Patient is going to decrease caffeine intake, and stop smoking she will also talk to her about secondhand smoke exposure and its dangers and will hopefully convince him to decrease as well and/or stopped 2. I believe that the multiple recurrent breast infections may be related to autoimmune disease/this would be in keeping with her rheumatoid arthritis and irritable bowel disease would like her to follow with her green chain offbearer to see if any further testing can be done with respect to this 3. Breast pain is most likely related to multifactorial issues including scar tissue from prior abscesses, fibrocystic changes, and her autoimmune disease again we will address each of these issues separately 4. Most recent mammogram 06-06-19 did not reveal anything which would require biopsy with suspicion for cancer 5. Appointment with infectious disease doctor 6. Follow up here in approximately 6 months time Time about 45 minutes, > 50% face time. CC: Dr. Back
== END | disposition home or self-care (01) ==
LOC: WWCWWP 13:49
PROVIDERS: ATTEND Surgery
DX: Z53.9 Procedure and treatment not carried out, unspecified reason (principal)

== ENCOUNTER → 2020-08-21 | Outpatient (CLI) | payer BC ==
--- NOTE | 2020-08-22 10:34 | MM ---
Reason for exam: screening (asymptomatic). Last mammogram was performed 1 year and 2 months ago. History: Patient is postmenopausal. Physical Findings: A clinical breast exam by your physician is recommended on an annual basis and results should be correlated with mammographic findings. MG Screening Mammo w CAD Bilateral CC and MLO view(s) were taken. Prior study comparison: June 06, 2019, bilateral MG 3d screening mammo w/cad. June 30, 2010, mammogram, performed at [facility]. There are scattered fibroglandular densities. There is no discrete abnormality. No significant changes when compared with prior studies. ASSESSMENT: Negative, BI-RAD 1 RECOMMENDATION: Routine screening mammogram of both breasts in 1 year.
== END | disposition home or self-care (01) ==
LOC: RADMAMWWP 14:42
PROVIDERS: ATTEND Internal Medicine
DX: Z12.31 Encounter for screening mammogram for malignant neoplasm of breast (principal)
CPT/HCPCS: 77067

== ENCOUNTER → 2020-10-23 | Outpatient (CLI) | payer BC ==
--- NOTE | 2020-10-23 23:40 | MR ---
MRI CERVICAL SPINE: CLINICAL HISTORY: Cervicalgia. Headaches with left-sided neck pain causing pain into both arms. Histo ry of neck surgery several years ago. TECHNIQUE: Multiplanar, multisequence imaging of the cervical spine is performed without and with IV contrast, 7 cc of gadolinium was given intravenously. COMPARISON: None. FINDINGS: Coronal images show levoconvex scoliosis centered in the upper thoracic spine. Sagittal yvette ges of the cervical spine show the craniocervical junction to appear within normal limits. The cervi ivone and upper thoracic spinal cord is normal in caliber and signal. Sagittal images show grade 1 retr olisthesis C3 and C4. The vertebral body heights are normal. There is artifact from anterior fusion hardware at C6-C7 level. Mild to moderate disc space narrowing C3-C4 through C5-C6 levels. Moderate disc space narrowing C7-T1 level. Probable artificial disc hardware C6-C7 level. The bone marrow sig nal intensity is heterogeneous. No suspicious postcontrast enhancement. Axial images at C2-C3 level show left-sided uncovertebral facet degenerative changes causing mild lef t-sided neural foraminal narrowing. Axial images at C3-C4 level show spondylolisthesis with broad based right paracentral disc protrusion effacing anterior thecal sac up to ventral surface of spinal cord with uncovertebral facet degenerat chet changes causing moderate left and mild right-sided neural foraminal narrowing. Axial images at C4-C5 level showed broad based right paracentral disc protrusion with uncovertebral f acet degenerative changes effacing the anterior lateral sac and causing [id number] right right and mild left-sided neural foraminal narrowing. Axial images at C5-C6 levels with broad-based left paracentral disc protrusion and uncovertebral face t degenerative changes, there is effacement of anterior thecal sac with moderate to advanced left and mild to moderate right-sided neural foraminal narrowing. Axial images at C6-C7 level show artifact from anterior fusion hardware with right paracentral bony p rojection effacing anterolateral thecal sac and causing mild right-sided neural foraminal narrowing. Axial images at C7-T1 level show artifact from surgical change, there is left paracentral disc protru khoi effacing the anterolateral thecal sac and causing moderate left-sided neural foraminal narrowing . Heterogeneous thyroid with nodules corresponds to June 06, 2019 ultrasound. IMPRESSION: Multilevel spondylolisthesis and degenerative changes as detailed above.
== END | disposition home or self-care (01) ==
LOC: RADMRIMAIN 16:20
PROVIDERS: ATTEND Orthopaedic Surgery Orthopaedic Surgery of the Spine
DX: M43.12 Spondylolisthesis, cervical region (principal); M47.22 Other spondylosis with radiculopathy, cervical region; M50.321 Other cervical disc degeneration at C4-C5 level; F32.9 Major depressive disorder, single episode, unspecified; M06.9 Rheumatoid arthritis, unspecified; K58.9 Irritable bowel syndrome, unspecified; Z98.1 Arthrodesis status; E78.00 Pure hypercholesterolemia, unspecified
CPT/HCPCS: 72156; A9585

== ENCOUNTER 2021-04-17 08:27 | Day surgery (SDC) | payer BC ==
[2021-04-16 08:41] VITALS: BMI 22.6
[~2021-04-17 08:27] MED LIST: LACTATED RINGERS 1,000 ML IV SCH; LIDOCAINE 1% (10MG/ML) FOR IV START INTRADERMA PRN
[2021-04-17 08:52] VITALS: TEMP 97.8
[2021-04-17] MEDS ORDERED: LIDOCAINE 1% INJ 10MG/ML (20 ML MDV) ONE (09:58)
[2021-04-17] MEDS ORDERED: PROPOFOL 10 MG/ML 20 ML VIAL IV ONE (09:58)
--- NOTE | 2021-04-17 10:25 | P.PCN ---
Date of Procedure: 04/17/21 Procedure(s) Performed: Brief history: Patient is a pleasant 60-year-old white female scheduled for an elective upper endoscopy as well as colonoscopy as a part of evaluation of GERD/Panchal's esophagus and prior history of colon polyps. Her last EGD and colonoscopy was done in [place]. She is currently maintained on pantoprazole 40 mg daily. Procedure performed: Esophagogastroduodenoscopy with biopsy Colonoscopy with snare polypectomy Preoperative diagnosis: GERD/Panchal's esophagus History of colon polyps Anesthesia: MAC Procedure: After informed consent was obtained from the patient was brought into the endoscopy unit and IV sedation was administered by anesthesia under continuous monitoring. Initially upper endoscopy was done. The Olympus GF 160 video endoscope was inserted inserted into the mouth and esophagus intubated without any difficulty and was gradually advanced into the stomach and duodenum and carefully examined. The bulb and second part of the duodenum appeared normal. In the second part of the duodenum there was a 6-7 mm ablation duodenal polyp that was removed by cold biopsy. The scope was then withdrawn into the stomach adequately insufflated with air and upon careful examination the antrum and body, cardia and fundus appeared normal. The scope was then withdrawn into the esophagus. The GE junction was located at 40 cm to the incisors. It appeared regular with no erythema erosions or ulcerations. Rest of the esophagus appeared normal. Patient tolerated the procedure well. At this time the patient continued to remain sedation. Initial digital rectal examination was normal. Olympus CF 160 video colonoscope was then inserted into the rectum and gradually advanced to the cecum without any difficulty. Careful examination was performed as the scope was gradually being withdrawn. The prep was excellent. The cecum, ascending colon, transverse colon, descending colon appeared normal. In the distal sigmoid colon there was a 5 mm polyp that was removed by snare polypectomy. Scattered sigmoid diverticulosis seen. Rest of the , sigmoid colon and rectum appeared normal. Retroflexion was performed in the rectum and no lesions were noted. Patient tolerated the procedure well. Impression: 1. Upper endoscopy revealed short segment Panchal's esophagus and excessive 7 mm duodenal polyp status post removal by cold biopsy 2. Colonoscopy revealed 5 mm; polyp status post polypectomy and scattered sigmoid diverticulosis appeared normal. Recommendations: Findings of this examination were discussed with the patient as well as her family. She was advised to follow with the biopsy results. She will continue her current medications and follow antireflux measures. She can have a repeat colonoscopy in 5 years was of the prior history of colon polyps.
[2021-04-17 10:45] VITALS: BP 146/85; PULSE 69; RESP 16
== END 2021-04-17 11:15 | disposition home or self-care (01) ==
LOC: ORWHC2ENDO 08:27
PROVIDERS: ATTEND Internal Medicine Gastroenterology
DX: Z12.11 Encounter for screening for malignant neoplasm of colon (principal); Z86.010 Personal history of colon polyps; K21.9 Gastro-esophageal reflux disease without esophagitis; K63.5 Polyp of colon; Z79.899 Other long term (current) drug therapy; Z88.0 Allergy status to penicillin; Z88.2 Allergy status to sulfonamides; F17.210 Nicotine dependence, cigarettes, uncomplicated; M06.9 Rheumatoid arthritis, unspecified; F39 Unspecified mood [affective] disorder; Z91.041 Radiographic dye allergy status
CPT/HCPCS: 88305; 45385; 43239; J2001; J2704

== ENCOUNTER → 2022-01-27 | Outpatient (CLI) | payer BC ==
--- NOTE | 2022-01-29 08:01 | BD ---
EXAMINATION TYPE: Axial Bone Density DATE OF EXAM: 01/27/2022 COMPARISON: NONE CLINICAL HISTORY: 61 years year old Female. ICD-10 CODE: N95.1MENOPAUSAL AND FEM Height: 64.5 Weight: 142.8 FRAX RISK QUESTIONS: Alcohol (3 or more units per day): NO Family History (Parent hip fracture): MOTHER Glucocorticoids (More than 3mos): NO History of Fracture in Adulthood: NO Secondary Osteoporosis: 1. Type 1 Diabetes: NO 2. Hyperthyroidism: NO 3. Menopause before 45: NO 4. Malnutrition: NO 5. Chronic liver disease: NO Rheumatoid Arthritis: YES Current Tobacco Use: YES RISK FACTORS HISTORY OF: Hip Fracture (Right/Left): NO Spine Fracture: NO History of Wrist Fracture: NO Surgery to Spine/Hip(right/left)/Wrist (right/left): LT WRIST 2020, Family History of Osteoporosis: NO Active: NO Diet low in dairy products/other sources of calcium: NO Postmenopausal woman: NO Take estrogen and/or progesterone medications: NO Lost more than 2 inches in height since high school: YES Frequent falls: NO Poor Health: NO Hyperparathyroidism: NO Adrenal Insufficiency: NO MEDICATIONS: Prednisone or other steroids: NO Thyroid Medications: NO Osteoporosis Medications: NO Additional Medications: NEURONTIN, VIT D, SIMVASTATIN, PROTONIX, Additional History: EXAM MEASUREMENTS: Bone mineral densitometry was performed using the [employer]. Bone mineral density as measured about the Lumbar spine is: ----- L1-L4(G/cm2): 1.257 T Score Values are as follows: ----- L1: -1.1 ----- L2: 0.3 ----- L3: 1.7 ----- L4: 1.1 ----- L1-L4: 0.6 BASELINE STUDY Bone mineral density about the R hip (g/cm2): 0.815 Bone mineral density about the L hip (g/cm2): 0.819 T Score values are as follows: -----R Neck: -1.6 -----L Neck: -1.6 -----R Total: -0.4 -----L Total: -0.2 BASELINE STUDY FRAX%s: The graph provided illustrates a 16.8% chance for a major osteoporotic fx and a 0.9% chance f or the hips probability for fx in 10 years time. IMPRESSION: Osteopenia (T Score between -2.5 and -1). There is slightly increased risk of fracture and the patient may be considered for treatment. Re-Screen 2-5 years. NOTE: T-SCORE=SD OF THE YOUNG ADULT MEAN.
--- NOTE | 2022-01-29 14:36 | MM ---
Reason for Exam: Screening (asymptomatic). Last mammogram was performed 1 year(s) and 5 month(s) ago. Patient History: Menarche at age 11. First Full-Term at age 25. Hysterectomy at age 39. Postmenopausal. Risk Values: Vianney 5 year model risk: 1.8%. NCI Lifetime model risk: 8.6%. Film Views: Bilateral CC views were taken. Bilateral MLO views were taken. Bilateral XCCL views were taken. Prior Study Comparison: 06/30/2010 Screening Mammogram, [facility]. 06/06/2019 Bilateral Screening Mammogram, [facility]. 08/21/2020 Bilateral Screening Mammogram, [facility]. Tissue Density: There are scattered fibroglandular densities. Findings: Analyzed By CAD. Occasional scattered benign-appearing punctate calcification in the bilateral breasts. There is no suspicious group of microcalcifications or new suspicious mass in either breast. Overall Assessment: Benign, BI-RAD 2 Management: Screening Mammogram of both breasts in 1 year. A clinical breast exam by your physician is recommended on an annual basis and results should be correlated with mammographic findings. Electronically signed and approved by: Vipin Doherty M.D.
== END | disposition home or self-care (01) ==
LOC: RADMAMWWP 15:26
PROVIDERS: ATTEND Internal Medicine
DX: Z12.31 Encounter for screening mammogram for malignant neoplasm of breast (principal); M85.89 Other specified disorders of bone density and structure, multiple sites; Z78.0 Asymptomatic menopausal state
CPT/HCPCS: 77067; 77080

== ENCOUNTER → 2022-10-08 | Outpatient (CLI) | payer BC ==
--- NOTE | 2022-10-08 09:44 | USB ---
Reason for Exam: Clinical finding. Patient History: Menarche at age 11. First Full-Term at age 25. Hysterectomy at age 39. Postmenopausal. Risk Values: Vianney 5 year model risk: 1.9%. NCI Lifetime model risk: 8.4%. Technique: Method: Whole Breast Handheld. Prior Study Comparison: 06/06/2019 Bilateral Screening Mammogram, [facility]. 08/21/2020 Bilateral Screening Mammogram, [facility]. 01/27/2022 Bilateral MG screening mammo w CAD, [facility]. Findings: The whole breast of the right breast, the axilla of the right breast and the retroareolar of the right breast were scanned. A complete US of all four quadrants of the breast and retro-areolar and axillary regions were reviewed. No solid or cystic masses are identified.. Overall Assessment: Negative, BI-RAD 1 Management: Screening Mammogram of both breasts in 4 months. Back on annual mammogram schedule. Manage patient's symptoms on clinical basis. Results were given to the patient verbally at the time of exam. Electronically signed and approved by: Vipin Doherty M.D.
== END | disposition home or self-care (01) ==
LOC: RADUSWWP 09:08
PROVIDERS: ATTEND Internal Medicine
DX: N64.52 Nipple discharge (principal); Z78.0 Asymptomatic menopausal state

== ENCOUNTER → 2023-08-25 | Outpatient (CLI) | payer MEDICARE, BC ==
[2023-08-25 11:19] VITALS: BP 134/81; PULSE 79; RESP 18; TEMP 97.8
--- NOTE | 2023-08-25 11:26 | P.GSHP ---
History of Present Illness H&P Date: 08/25/23 Chief Complaint: breast pain Bridget is a 63 year old female seen in consultation for DR. Back regarding bilateral breast abscesses. She was seen by Dr. Back and given a prescription mupirocin cream this seems to have helped. She washes with hibiclens. They are worse when she is stressed, her within the past year which is largely increased her stress and when she sweats. She complains of pain with the sores in her breast. In the past she was admitted to the hospital approximately 25 years ago with a "boil under her right breast. She received IV antibiotics and had a PICC line for approximately 6 months. Again this was in the remote past. She does not complain of any fever or chills. She is not complaining of any lumps within the breast or nipple discharge or. She has not had any recent trauma of the breast. Caffeine:5 cups/day nicotine: stopped 2 1/2 months ago, used to smoke 1/2 PPD since 24 years old chocolate: occasional Family History: nephew: thyroid cancer Hormonal History: menarche: 11 , breast fed: no, age at first : 23 menopause: hysterectomy at 39, did not take ovaries, done for endometriosis control pills: < 5 years hormones: none Surgical History: gallbaldder appy 2 C-sections right knee tonsil Medical History: anxiety arthritis/fibromyalgia Neuropathy GERD Autoimmune disorder Social History: nicotine: stopped as above alcohol: none drugs: none - Constitutional Constitutional: Reports sweats - EENT Eyes: denies blurred vision, denies pain Ears: right: decreased hearing, deny: tinnitus Ears, nose, mouth and throat: Denies headache, Denies sore throat - Breasts Breasts: bilateral: as per HPI - Cardiovascular Cardiovascular: Denies chest pain, Denies shortness of breath - Respiratory Respiratory: Reports cough - Gastrointestinal Comment: GERD, IBS Gastrointestinal: Reports constipation - Genitourinary (Female) Genitourinary: Denies dysuria, Denies hematuria - Menstruation Menstruation: Reports post hysterectomy - Musculoskeletal Musculoskeletal: Reports as per HPI - Integumentary Integumentary: Reports as per HPI, Reports boils - Neurological Comment: hands numb and weak Neurological: Reports numbness, Reports weakness - Psychiatric Psychiatric: Reports anxiety, Reports depression - Endocrine Endocrine: Reports fatigue, Denies weight change - Hematologic/Lymphatic Comment: none - Allergic/Immunologic Allergic/Immunologic: Reports seasonal allergies Past Medical History Past Medical History: Fibromyalgia, GERD/Reflux, Rheumatoid Arthritis (RA) Additional Past Medical History / Comment(s): Panchal's esophagus,colon polyps,IBS,neuropathy vane feet History of Any Multi-Drug Resistant Organisms: None Reported Past Surgical History: Appendectomy, Section, Cholecystectomy, Hysterectomy, Orthopedic Surgery, Tonsillectomy Additional Past Surgical History / Comment(s): cervical fusion, colonoscopy,carpel tunnel,trigger finger release,jt replacement left thumb,rt knee meniscus,rt thyroid bx Past Anesthesia/Blood Transfusion Reactions: No Reported Reaction Smoking Status: Current every day smoker - Past Family History Mother Family Medical History: No Reported History Medications and Allergies Home Medications Medication Instructions Recorded Confirmed Type Gabapentin [Neurontin] 400 mg PO TID 10/16/18 04/16/21 History Hyoscyamine Sulfate [Levbid] 0.375 mg PO BID 10/16/18 04/16/21 History Pantoprazole Sodium [Protonix] 40 mg PO BID 10/16/18 04/16/21 History QUEtiapine [SEROquel] 200 mg PO HS 10/16/18 04/16/21 History Fluticasone Nasal [place] [Flonase 1 spr NASAL DAILY MDD SP 07/11/19 04/16/21 History Nasal [place]rt[place]] Simvastatin [Zocor] 20 mg PO HS 07/11/19 04/16/21 History Ergocalciferol [Vitamin D2 (1250 1,250 mcg PO WEEKLY 04/16/21 04/17/21 History Mcg = [id number] Iu)] Venlafaxine HCl [Effexor] 225 mg PO 1730 04/16/21 04/16/21 History Allergies Allergy/AdvReac Type Severity Reaction Status Date / Time cefaclor [From Ceclor] Allergy Rash/Hives Verified 08/25/23 10:59 celecoxib [From Celebrex] Allergy Dyspnea Verified 08/25/23 10:59 cephalexin [From Keflex] Allergy Anaphylaxis Verified 08/25/23 10:59 Iodinated Contrast Media Allergy Unknown Verified 08/25/23 10:59 [Iodinated Contrast- Oral and IV Dye] Penicillins Allergy Anaphylaxis Verified 08/25/23 10:59 Sulfa (Sulfonamide Allergy Dyspnea Verified 08/25/23 10:59 Antibiotics) aspirin AdvReac Anaphylaxis Unverified 08/25/23 10:59 Surgical - Exam - General moderate distress - Eyes normal ocular movement - Neck trachea midline - Respiratory normal respiratory effort, clear to auscultation - Cardiovascular Heart Sounds: normal: S1, S2 - Abdomen Abdomen: soft, non tender, no guarding, no rigid, no rebound - Integumentary Breast Exam: sports bra large Inspection: boils healing lateral aspect of both breast Palpation: Right breast: Multi-positional exam healing boil in the 7:00 location no dominant masses or nodules of concern Right axilla: No adenopathy of concern Left breast: Multi-positional exam healing boil in the 4 o'clock position no abscess to drain no dominant masses or nodules of concern Left axilla: No adenopathy of concern Results The patient has not had a recent mammogram she did have an ultrasound on 10/08/2022 of the right breast which was BIRADS 1 Assessment and Plan Assessment: Impression: anxiety arthritis/fibromyalgia Neuropathy GERD Autoimmune disorder Bilateral fibrocystic breast changes Bilateral portals in the lateral aspect of the breast which appeared to be improving on the new mupurion cream Plan: Continued application of mupurion cream Bilateral mammogram the first of the year with repeat appointment at that time Last modifications discussed which include stop caffeine intake Patient to follow up sooner any questions or concerns Continue using Hibiclens to clean the areas appointment after bilateral mammogram CC: Dr. Back
== END ==
LOC: WWCWWP 10:49
PROVIDERS: ATTEND Surgery
DX: F41.9 Anxiety disorder, unspecified (principal); G62.9 Polyneuropathy, unspecified; K21.9 Gastro-esophageal reflux disease without esophagitis; K58.9 Irritable bowel syndrome, unspecified; M06.9 Rheumatoid arthritis, unspecified; M79.7 Fibromyalgia; N60.11 Diffuse cystic mastopathy of right breast; N60.12 Diffuse cystic mastopathy of left breast; N64.4 Mastodynia; F17.210 Nicotine dependence, cigarettes, uncomplicated; Z87.19 Personal history of other diseases of the digestive system; Z88.0 Allergy status to penicillin; Z88.1 Allergy status to other antibiotic agents; Z88.2 Allergy status to sulfonamides; Z88.6 Allergy status to analgesic agent; Z88.8 Allergy status to other drugs, medicaments and biological substances; Z90.49 Acquired absence of other specified parts of digestive tract; Z91.041 Radiographic dye allergy status; Z90.710 Acquired absence of both cervix and uterus

== ENCOUNTER → 2023-09-28 | Outpatient (CLI) | payer BC ==
--- NOTE | 2023-09-28 09:12 | MM ---
Reason for Exam: Screening (asymptomatic). Last mammogram was performed 1 year(s) and 8 month(s) ago. Patient History: Menarche at age 11. First Full-Term at age 25. Hysterectomy at age 39. Postmenopausal. Risk Values: Vianney 5 year model risk: 1.9%. NCI Lifetime model risk: 8.1%. Prior Study Comparison: 06/06/2019 Bilateral Screening Mammogram, [facility]. 08/21/2020 Bilateral Screening Mammogram, [facility]. 01/27/2022 Bilateral MG screening mammo w CAD, [facility]. Tissue Density: There are scattered fibroglandular densities. Findings: Analyzed By CAD. There is no suspicious group of microcalcifications or new suspicious mass. Overall Assessment: Negative, BI-RAD 1 Management: Screening Mammogram of both breasts in [address] [facility] will attempt to contact patient to return for supplemental views and ultrasound if indicated. Patient should continue monthly self-breast exams. A clinical breast exam by your physician is recommended on an annual basis. This exam should not preclude additional follow-up of suspicious palpable abnormalities. Note on Vianney scores and lifetime risk: 1. A Vianney score greater than 3% is considered moderate risk. If this is the case, consider specialist referral to assess eligibility for a risk reducing agent. 2. If overall lifetime risk for the development of breast cancer is 20% or higher, the patient may qualify for future screening with alternating mammogram and breast MRI. Electronically signed and approved by: Leoncio Montez DO
== END | disposition home or self-care (01) ==
LOC: RADMAMWWP 08:11
PROVIDERS: ATTEND Surgery
DX: Z12.31 Encounter for screening mammogram for malignant neoplasm of breast (principal); Z78.0 Asymptomatic menopausal state
CPT/HCPCS: 77063; 77067

== ENCOUNTER → 2023-10-07 | Outpatient (CLI) | payer BC, MEDICARE ==
--- NOTE | 2023-10-07 10:15 | P.PN ---
Subjective Progress Note Date: 10/07/23 Principal diagnosis: breast pain breast pain Bridget is a 63 year old female seen in consultation for DR. Back regarding bilateral breast abscesses. She was seen by Dr. Back and given a prescription mupirocin cream this seems to have helped. She washes with hibiclens. They are worse when she is stressed, her within the past year which is largely increased her stress and when she sweats. She complains of pain with the sores in her breast. In the past she was admitted to the hospital approximately 25 years ago with a "boil under her right breast. She received IV antibiotics and had a PICC line for approximately 6 months. Again this was in the remote past. She does not complain of any fever or chills. She is not complaining of any lumps within the breast or nipple discharge. She has not had any recent trauma of the breast. bilateral mammogram on 09-28-23 personally reviewed BIRAD 1; does have healed at this time there is no drainage and she is doing well she is Eucerin cream as needed Caffeine:5 cups/day nicotine: stopped 2 1/2 months ago, used to smoke 1/2 PPD since 24 years old chocolate: occasional Family History: nephew: thyroid cancer Hormonal History: menarche: 11 , breast fed: no, age at first : 23 menopause: hysterectomy at 39, did not take ovaries, done for endometriosis control pills: < 5 years hormones: none Surgical History: gallbaldder appy 2 C-sections right knee tonsil Medical History: anxiety arthritis/fibromyalgia Neuropathy GERD Autoimmune disorder Social History: nicotine: stopped as above alcohol: none drugs: none - Constitutional Constitutional: Reports sweats - EENT Eyes: denies blurred vision, denies pain Ears: right: decreased hearing, deny: tinnitus Ears, nose, mouth and throat: Denies headache, Denies sore throat - Breasts Breasts: bilateral: as per HPI - Cardiovascular Cardiovascular: Denies chest pain, Denies shortness of breath - Respiratory Respiratory: Reports cough - Gastrointestinal Comment: GERD, IBS Gastrointestinal: Reports constipation - Genitourinary (Female) Genitourinary: Denies dysuria, Denies hematuria - Menstruation Menstruation: Reports post hysterectomy - Musculoskeletal Musculoskeletal: Reports as per HPI - Integumentary Integumentary: Reports as per HPI, Reports boils - Neurological Comment: hands numb and weak Neurological: Reports numbness, Reports weakness - Psychiatric Psychiatric: Reports anxiety, Reports depression - Endocrine Endocrine: Reports fatigue, Denies weight change - Hematologic/Lymphatic Comment: none - Allergic/Immunologic Allergic/Immunologic: Reports seasonal allergies Past Medical History Past Medical History: Fibromyalgia, GERD/Reflux, Rheumatoid Arthritis (RA) Additional Past Medical History / Comment(s): Panchal's esophagus,colon polyps,IBS,neuropathy vane feet History of Any Multi-Drug Resistant Organisms: None Reported Past Surgical History: Appendectomy, Section, Cholecystectomy, Hysterectomy, Orthopedic Surgery, Tonsillectomy Additional Past Surgical History / Comment(s): cervical fusion, colonoscopy,carpel tunnel,trigger finger release,jt replacement left thumb,rt knee meniscus,rt thyroid bx Past Anesthesia/Blood Transfusion Reactions: No Reported Reaction Smoking Status: Current every day smoker - Past Family History Mother Family Medical History: No Reported History Medications and Allergies Home Medications Medication Instructions Recorded Confirmed Type Gabapentin [Neurontin] 400 mg PO TID 10/16/18 04/16/21 History Hyoscyamine Sulfate [Levbid] 0.375 mg PO BID 10/16/18 04/16/21 History Pantoprazole Sodium [Protonix] 40 mg PO BID 10/16/18 04/16/21 History QUEtiapine [SEROquel] 200 mg PO HS 10/16/18 04/16/21 History Fluticasone Nasal [place] [Flonase 1 spr NASAL DAILY MDD SP 07/11/19 04/16/21 History Nasal [place]] Simvastatin [Zocor] 20 mg PO HS 07/11/19 04/16/21 History Ergocalciferol [Vitamin D2 (1250 1,250 mcg PO WEEKLY 04/16/21 04/17/21 History Mcg = 43289 Iu)] Venlafaxine HCl [Effexor] 225 mg PO 1730 04/16/21 04/16/21 History Allergies Allergy/AdvReac Type Severity Reaction Status Date / Time cefaclor [From Ceclor] Allergy Rash/Hives Verified 08/25/23 10:59 celecoxib [From Celebrex] Allergy Dyspnea Verified 08/25/23 10:59 cephalexin [From Keflex] Allergy Anaphylaxis Verified 08/25/23 10:59 Iodinated Contrast Media Allergy Unknown Verified 08/25/23 10:59 [Iodinated Contrast- Oral and IV Dye] Penicillins Allergy Anaphylaxis Verified 08/25/23 10:59 Sulfa (Sulfonamide Allergy Dyspnea Verified 08/25/23 10:59 Antibiotics) aspirin AdvReac Anaphylaxis Unverified 08/25/23 10:59 Objective - Constitutional General appearance: Present: cooperative - EENT Eyes: Present: EOMI ENT: Present: hearing grossly normal - Neck Neck: Present: normal ROM - Respiratory Respiratory: bilateral: CTA - Cardiovascular Heart sounds: normal: S1, S2 - Musculoskeletal Musculoskeletal: Present: gait normal - Psychiatric Psychiatric: Present: A&O x's 3, appropriate affect, intact judgment & insight - Additional findings Additional findings: Breast Exam: sports bra large Inspection: boils healing lateral aspect of both breast Palpation: Right breast: Multi-positional exam healed boil in the 7:00 location no dominant masses or nodules of concern Right axilla: No adenopathy of concern Left breast: Multi-positional exam healed boil in the 4 o'clock position no abscess to drain no dominant masses or nodules of concern Left axilla: No adenopathy of concern Assessment and Plan Assessment: Impression: anxiety arthritis/fibromyalgia Neuropathy GERD Autoimmune disorder Bilateral fibrocystic breast changes Bilateral boils in the lateral aspect of the breast which appeared to be improving on the new mupurion cream bilateral mammogram 09-28-23 BIRAD 1 Plan: Continued application of mupurion cream as needed Bilateral mammogram one year with appointment Life style modifications discussed which include stop caffeine intake Patient to follow up sooner any questions or concerns Continue using Hibiclens to clean the areas appointment after bilateral mammogram CC: Dr. Back
[2023-10-07 10:41] VITALS: BP 148/76; PULSE 84; RESP 17; TEMP 98.3
== END ==
LOC: WWCWWP 08:53
PROVIDERS: ATTEND Surgery
DX: N60.11 Diffuse cystic mastopathy of right breast (principal); N60.12 Diffuse cystic mastopathy of left breast; F41.9 Anxiety disorder, unspecified; M19.90 Unspecified osteoarthritis, unspecified site; K21.9 Gastro-esophageal reflux disease without esophagitis; D89.89 Other specified disorders involving the immune mechanism, not elsewhere classified; G62.9 Polyneuropathy, unspecified; K22.70 Barrett's esophagus without dysplasia; M06.9 Rheumatoid arthritis, unspecified; F17.200 Nicotine dependence, unspecified, uncomplicated; Z90.710 Acquired absence of both cervix and uterus; Z90.49 Acquired absence of other specified parts of digestive tract; Z98.890 Other specified postprocedural states; Z88.1 Allergy status to other antibiotic agents; Z88.0 Allergy status to penicillin; Z88.2 Allergy status to sulfonamides; Z88.6 Allergy status to analgesic agent

== ENCOUNTER 2024-01-04 07:14 | Day surgery (SDC) | payer MEDICARE, BC ==
[~2024-01-04 07:14] MED LIST changes: -LACTATED RINGERS 1,000 ML IV SCH
[2024-01-04] MEDS: LACTATED RINGERS 1,000 ML IV SCH (07:30)
[2024-01-04 08:08] VITALS: RESP 18; TEMP 97.6
[2024-01-04] MEDS ORDERED: PROPOFOL 10 MG/ML 20 ML VIAL IV ONE (08:44)
[2024-01-04] MEDS ORDERED: LIDOCAINE 2% (PF) 20 MG/ML 5 ML VIAL ONE (08:44)
--- NOTE | 2024-01-04 09:15 | P.PCN ---
Date of Procedure: 01/04/24 Procedure(s) Performed: BRIEF HISTORY: Patient is a 63-year-old, pleasant, white female scheduled of endoscopies about evaluation of longstanding history of GERD and prior history of duodenal polyp.. PROCEDURE PERFORMED: Esophagogastroduodenoscopy with with biopsy. PREOPERATIVE DIAGNOSIS: GERD/history of duodenal polyp. IV sedation per anesthesia. PROCEDURE: After informed consent was obtained, the patient was brought into the endoscopy unit. IV sedation was administered by Anesthesia under continuous monitoring. Initially the Olympus GIF-140 video endoscope was inserted into the mouth. Esophagus intubated without any difficulty. It was gradually advanced into the stomach and duodenum and carefully examined. The bulb and the second part of the duodenum appeared normal. In the second part of the duodenum there was a 3 mm residual duodenal duodenal polyp that was removed by cold biopsy. The scope at this time was withdrawn to the stomach, adequately insufflated with air, and upon careful examination, mucosa of the antrum, and medical studies and biopsies were done from this area. Body, cardia and the fundus appeared normal. The scope was then withdrawn into the esophagus. Small hiatal hernia noted. The GE junction was located at 39 cm from the incisors. It was a short segment of Panchal's esophagus extending 5 mm proximal to the GE junction that was biopsied. The esophagus appeared normal. There were no erosions or ulcerations seen and the patient tolerated the procedure well. IMPRESSION: 1. 3 mm duodenal polyp status post removal by cold biopsy. 2. Mild antral gastritis 3. Small hiatal hernia and short segment Panchal's esophagus s/p. RECOMMENDATIONS: The findings of this examination were discussed with the patient as well as his family. She was advised to follow-up with the biopsy results. The biopsy confirmed the presence of Panchal's esophagus she was advised to have a repeat upper endoscopy in 3 years. In the meantime continue with current medications and follow antireflux measures.
[2024-01-04 09:50] VITALS: BP 138/76; PULSE 76
== END 2024-01-04 09:41 | disposition home or self-care (01) ==
LOC: ORWHC2ENDO 07:14
PROVIDERS: ATTEND Internal Medicine Gastroenterology
DX: K29.50 Unspecified chronic gastritis without bleeding (principal); K31.7 Polyp of stomach and duodenum; K44.9 Diaphragmatic hernia without obstruction or gangrene; K21.9 Gastro-esophageal reflux disease without esophagitis; K22.70 Barrett's esophagus without dysplasia; M79.7 Fibromyalgia; M19.90 Unspecified osteoarthritis, unspecified site; M06.9 Rheumatoid arthritis, unspecified; Z79.899 Other long term (current) drug therapy; Z88.5 Allergy status to narcotic agent; Z88.8 Allergy status to other drugs, medicaments and biological substances; Z88.0 Allergy status to penicillin; Z88.1 Allergy status to other antibiotic agents; Z88.2 Allergy status to sulfonamides
CPT/HCPCS: 88305; 43239; J2704; J2001

== ENCOUNTER → 2024-04-12 | Outpatient (CLI) | payer MEDICARE, BC | END | disposition home or self-care (01) | LOC: LABWHC1 13:46 | PROVIDERS: ATTEND Family Medicine | DX: Z00.00 Encounter for general adult medical examination without abnormal findings (principal); E55.9 Vitamin D deficiency, unspecified; E78.5 Hyperlipidemia, unspecified | CPT/HCPCS: 36415; 80053; 80061; 82306; 84443; 85025 ==

== ENCOUNTER → 2024-05-30 | Outpatient (CLI) | payer MEDICARE, BC ==
[2024-05-30 10:46] LABS: Basophils # (A) 0.05 X 10*3/uL (0.00-0.10); Basophils % (A) 0.4 %; Eosinophils # (A) 0.15 X 10*3/uL (0.04-0.35); Eosinophils % (A) 1.3 %; HCT 42.1 % (37.2-46.3); HGB 13.8 g/dL (12.0-15.0); Lymphocytes # (A) 2.74 X 10*3/uL (0.90-5.00); Lymphocytes % (A) 24.6 %; MCH 31.4 pg (27.0-32.0); MCHC 32.8 g/dL (32.0-37.0); MCV 95.7 FL (80.0-97.0); Mean Platelet Volume 8.9 FL (9.5-12.2); Monocytes # (A) 0.62 X 10*3/uL (0.20-1.00); Monocytes % (A) 5.6 %; NRBC Per 100 WBC 0 X 10*3/uL (0.00-0.01); Neutrophils # (A) 7.49 X 10*3/uL (1.80-7.70); Neutrophils % (A) 67.2 %; Platelet Count 259 X 10*3/uL (140-440); RDW 14.6 % (11.5-14.5); WBC 11.15 X 10*3/uL (4.50-10.00)
[2024-05-30 11:17] LABS: ALT 17 U/L (8-44); AST 15 U/L (13-35); Albumin 4.6 g/dL (3.8-4.9); Alkaline Phosphatase 73 U/L (41-126); BUN/Creat Ratio 17.14 Ratio (12.00-20.00); Calcium 9.7 mg/dL (8.7-10.3); Carbon Dioxide 26.2 mmol/L (21.6-31.8); Chloride 104 mmol/L (96-109); Chol/HDL Ratio 2.35 Ratio; Glucose 122 mg/dL (70-110); LDL Cholesterol,Calculated 94.4 mg/dL (0.0-131.0); Potassium 4.1 mmol/L (3.5-5.5); Sodium 143 mmol/L (135-145); Total Bilirubin 0.6 mg/dL (0.3-1.2); Total Protein 6.6 g/dL (6.2-8.2); VLDL Calculation 11.82 mg/dL (5.00-40.00)
== END | disposition home or self-care (01) ==
LOC: LABWHC1 07:09
PROVIDERS: ATTEND Family Medicine
DX: Z00.00 Encounter for general adult medical examination without abnormal findings (principal); E78.5 Hyperlipidemia, unspecified; E55.9 Vitamin D deficiency, unspecified
CPT/HCPCS: 36415; 80053; 80061; 82306; 84443; 85025

== ENCOUNTER → 2024-10-01 | Outpatient (CLI) | payer BC, MEDICARE ==
--- NOTE | 2024-10-01 10:06 | MM ---
Reason for Exam: Screening (asymptomatic). Last screening mammogram was performed 12 month(s) ago. Patient History: Menarche at age 11. First Full-Term at age 25. Hysterectomy at age 39. Postmenopausal. Risk Values: Vianney 5 year model risk: 2.0%. NCI Lifetime model risk: 7.9%. Prior Study Comparison: 08/21/2020 Bilateral Screening Mammogram, [facility]. 01/27/2022 Bilateral MG screening mammo w CAD, [facility]. 09/28/2023 Bilateral MG 3D screening mammo w/cad, [facility]. Tissue Density: The breasts are heterogeneously dense, which may obscure small masses. Findings: Analyzed By CAD. Right breast: There is no suspicious group of microcalcifications or new suspicious mass. Left breast: There is no suspicious group of microcalcifications or new suspicious mass. Benign-appearing calcifications left breast. Overall Assessment: Benign, BI-RAD 2 Management: Screening Mammogram of both breasts in [address] [facility] will attempt to contact patient to return for supplemental views and ultrasound if indicated. Patient should continue monthly self-breast exams. A clinical breast exam by your physician is recommended on an annual basis. This exam should not preclude additional follow-up of suspicious palpable abnormalities. Note on Vianney scores and lifetime risk: 1. A Vianney score greater than 3% is considered moderate risk. If this is the case, consider specialist referral to assess eligibility for a risk reducing agent. 2. If overall lifetime risk for the development of breast cancer is 20% or higher, the patient may qualify for future screening with alternating mammogram and breast MRI. [facility], , 10/01/2024 10:03 AM. Electronically signed and approved by: Leoncio Montez DO
== END | disposition home or self-care (01) ==
LOC: RADMAMWWP 08:40
PROVIDERS: ATTEND Surgery
DX: Z12.31 Encounter for screening mammogram for malignant neoplasm of breast (principal); R92.333 Mammographic heterogeneous density, bilateral breasts; Z78.0 Asymptomatic menopausal state
CPT/HCPCS: 77063; 77067

== ENCOUNTER → 2024-10-05 | Outpatient (CLI) | payer BC, MEDICARE ==
[2024-10-05 12:52] VITALS: BP 138/67; PULSE 60; RESP 17; TEMP 98.1
--- NOTE | 2024-10-05 13:00 | P.PN ---
Subjective Progress Note Date: 10/05/24 Principal diagnosis: breast pain 10-05-24 Principal diagnosis: breast pain 10-07-23 Bridget is a 63 year old female seen in consultation for DR. Back regarding bilateral breast abscesses. She was seen by Dr. Back and given a prescription mupirocin cream this seems to have helped. She washes with hibiclens. They are worse when she is stressed, her within the past year which is largely increased her stress and when she sweats. She complains of pain with the sores in her breast. In the past she was admitted to the hospital approximately 25 years ago with a "boil under her right breast. She received IV antibiotics and had a PICC line for approximately 6 months. Again this was in the remote past. She does not complain of any fever or chills. She is not complaining of any lumps within the breast or nipple discharge. She has not had any recent trauma of the breast. bilateral mammogram on 09-28-23 personally reviewed BIRAD 1; does have healed at this time there is no drainage and she is doing well she is Eucerin cream as needed 10-05-24 bilateral mammogram on 10-01-24 personally interpreted BIRAD 2 Complaining of any new lumps masses or nodules of concern in either breast The abscesses which she had a year ago have healed Caffeine:5 cups/day nicotine: stopped 2 1/2 months ago, used to smoke 1/2 PPD since 24 years old chocolate: occasional Family History: nephew: thyroid cancer Hormonal History: menarche: 11 , breast fed: no, age at first : 23 menopause: hysterectomy at 39, did not take ovaries, done for endometriosis control pills: < 5 years hormones: none Surgical History: gallbaldder appy 2 C-sections right knee tonsil Medical History: anxiety arthritis/fibromyalgia Neuropathy GERD Autoimmune disorder Social History: nicotine: stopped as above alcohol: none drugs: none - Constitutional Constitutional: Reports sweats - EENT Eyes: denies blurred vision, denies pain Ears: right: decreased hearing, deny: tinnitus Ears, nose, mouth and throat: Denies headache, Denies sore throat - Breasts Breasts: bilateral: as per HPI - Cardiovascular Cardiovascular: Denies chest pain, Denies shortness of breath - Respiratory Respiratory: Reports cough - Gastrointestinal Comment: GERD, IBS Gastrointestinal: Reports constipation - Genitourinary (Female) Genitourinary: Denies dysuria, Denies hematuria - Menstruation Menstruation: Reports post hysterectomy - Musculoskeletal Musculoskeletal: Reports as per HPI - Integumentary Integumentary: Reports as per HPI, Reports boils - Neurological Comment: hands numb and weak Neurological: Reports numbness, Reports weakness - Psychiatric Psychiatric: Reports anxiety, Reports depression - Endocrine Endocrine: Reports fatigue, Denies weight change - Hematologic/Lymphatic Comment: none - Allergic/Immunologic Allergic/Immunologic: Reports seasonal allergies Past Medical History Past Medical History: Fibromyalgia, GERD/Reflux, Rheumatoid Arthritis (RA) Additional Past Medical History / Comment(s): Panchal's esophagus,colon polyps,IBS,neuropathy vane feet History of Any Multi-Drug Resistant Organisms: None Reported Past Surgical History: Appendectomy, Section, Cholecystectomy, Hysterectomy, Orthopedic Surgery, Tonsillectomy Additional Past Surgical History / Comment(s): cervical fusion, colonoscopy,carpel tunnel,trigger finger release,jt replacement left thumb,rt knee meniscus,rt thyroid bx Past Anesthesia/Blood Transfusion Reactions: No Reported Reaction Smoking Status: Current every day smoker - Past Family History Mother Family Medical History: No Reported History Medications and Allergies Home Medications Medication Instructions Recorded Confirmed Type Gabapentin [Neurontin] 400 mg PO TID 10/16/18 04/16/21 History Hyoscyamine Sulfate [Levbid] 0.375 mg PO BID 10/16/18 04/16/21 History Pantoprazole Sodium [Protonix] 40 mg PO BID 10/16/18 04/16/21 History QUEtiapine [SEROquel] 200 mg PO HS 10/16/18 04/16/21 History Fluticasone Nasal [place] [Flonase 1 spr NASAL DAILY MDD SP 07/11/19 04/16/21 History Nasal [place]] Simvastatin [Zocor] 20 mg PO HS 07/11/19 04/16/21 History Ergocalciferol [Vitamin D2 (1250 1,250 mcg PO WEEKLY 04/16/21 04/17/21 History Mcg = 22691 Iu)] Venlafaxine HCl [Effexor] 225 mg PO 1730 04/16/21 04/16/21 History Allergies Allergy/AdvReac Type Severity Reaction Status Date / Time cefaclor [From [facility]] Allergy Rash/Hives Verified 08/25/23 10:59 celecoxib [From Celebrex] Allergy Dyspnea Verified 08/25/23 10:59 cephalexin [From Keflex] Allergy Anaphylaxis Verified 08/25/23 10:59 Iodinated Contrast Media Allergy Unknown Verified 08/25/23 10:59 [Iodinated Contrast- Oral and IV Dye] Penicillins Allergy Anaphylaxis Verified 08/25/23 10:59 Sulfa (Sulfonamide Allergy Dyspnea Verified 08/25/23 10:59 Antibiotics) aspirin AdvReac Anaphylaxis Unverified 08/25/23 10:59 Objective - Vital Signs Vital signs: Intake & Output 10/04/24 10/05/24 10/05/24 18:59 06:59 18:59 Weight 57.153 kg - Constitutional General appearance: Present: cooperative - EENT Eyes: Present: EOMI ENT: Present: hearing grossly normal - Neck Neck: Present: normal ROM - Respiratory Respiratory: bilateral: CTA - Cardiovascular Rhythm: regular Heart sounds: normal: S1, S2 - Integumentary Integumentary: Present: normal turgor - Musculoskeletal Musculoskeletal: Present: gait normal - Psychiatric Psychiatric: Present: A&O x's 3, appropriate affect, intact judgment & insight - Additional findings Additional findings: Breast Exam: sports bra large Inspection: boils healing lateral aspect of both breast Palpation: Right breast: Multi-positional exam no dominate masses or nodules of concern Right axilla: No adenopathy of concern Left breast: Multi-positional exam no dominate masses or nodules of concern Left axilla: No adenopathy of concern Assessment and Plan Assessment: Impression: anxiety arthritis/fibromyalgia Neuropathy GERD Autoimmune disorder Bilateral fibrocystic breast changes Bilateral boils in the lateral aspect of the breast which appeared to be improving on the new mupurion cream bilateral mammogram 10-01-24 BIRAD 2 Plan: Bilateral mammogram one year with appointment Life style modifications discussed which include stop caffeine intake Patient to follow up sooner any questions or concerns Continue using Hibiclens to clean the areas appointment after bilateral mammogram Sep 2025 CC: Dr. Florentino
== END ==
LOC: WWCWWP 11:47
PROVIDERS: ATTEND Surgery
DX: F41.9 Anxiety disorder, unspecified (principal); M79.7 Fibromyalgia; G60.9 Hereditary and idiopathic neuropathy, unspecified; K21.9 Gastro-esophageal reflux disease without esophagitis; D89.9 Disorder involving the immune mechanism, unspecified; N60.11 Diffuse cystic mastopathy of right breast; N60.12 Diffuse cystic mastopathy of left breast; F17.210 Nicotine dependence, cigarettes, uncomplicated; Z88.1 Allergy status to other antibiotic agents; Z88.6 Allergy status to analgesic agent; Z91.041 Radiographic dye allergy status; Z88.2 Allergy status to sulfonamides; Z88.0 Allergy status to penicillin

== ENCOUNTER → 2024-10-31 | Outpatient (CLI) | payer MEDICARE, BC ==
[2024-10-31 15:06] LABS: Basophils # (A) 0.04 X 10*3/uL (0.00-0.10); Basophils % (A) 0.5 %; Eosinophils # (A) 0.08 X 10*3/uL (0.04-0.35); HCT 47.6 % (37.2-46.3); HGB 15.5 g/dL (12.0-15.0); Lymphocytes # (A) 2.16 X 10*3/uL (0.90-5.00); Lymphocytes % (A) 25.7 %; MCH 31.7 pg (27.0-32.0); MCHC 32.6 g/dL (32.0-37.0); MCV 97.3 FL (80.0-97.0); Mean Platelet Volume 9.3 FL (9.5-12.2); Monocytes # (A) 0.46 X 10*3/uL (0.20-1.00); Monocytes % (A) 5.5 %; NRBC Per 100 WBC 0 X 10*3/uL (0.00-0.01); Neutrophils # (A) 5.64 X 10*3/uL (1.80-7.70); Neutrophils % (A) 66.9 %; Platelet Count 271 X 10*3/uL (140-440); RBC 4.89 X 10*6/uL (4.10-5.20); RDW 14.4 % (11.5-14.5); WBC 8.41 X 10*3/uL (4.50-10.00)
[2024-10-31 15:37] LABS: ALT 15 U/L (8-44); AST 18 U/L (13-35); Albumin 4.7 g/dL (3.8-4.9); Albumin/Globulin Ratio 2.14 Ratio (1.60-3.17); Alkaline Phosphatase 65 U/L (41-126); Blood Urea Nitrogen 10.5 mg/dL (9.0-27.0); Calcium 10.1 mg/dL (8.7-10.3); Carbon Dioxide 28.2 mmol/L (21.6-31.8); Chloride 102 mmol/L (96-109); Chol/HDL Ratio 2.73 Ratio; Globulin 2.2 g/dL (1.6-3.3); Glucose 138 mg/dL (70-110); LDL Cholesterol,Calculated 90.2 mg/dL (0.0-131.0); Potassium 4.3 mmol/L (3.5-5.5); Sodium 142 mmol/L (135-145); T4, Free (Free Thyroxine) 1.05 ng/dL (0.80-1.80); Total Bilirubin 0.6 mg/dL (0.3-1.2); Total Protein 6.9 g/dL (6.2-8.2)
== END | disposition home or self-care (01) ==
LOC: LABWHC1 08:28
PROVIDERS: ATTEND Registered Nurse
DX: Z51.81 Encounter for therapeutic drug level monitoring (principal); Z79.899 Other long term (current) drug therapy
CPT/HCPCS: 36415; 80053; 80061; 82306; 83036; 84439; 84443; 84479; 85025